=== PATIENT | female | born 1965 | race Hispanic/Latino ===

== ENCOUNTER 2023-10-05 20:23 | Emergency (ER) | payer OTHER ==
[~2023-10-05] VITALS: Ht 152.4 cm; Wt 62.6 kg
[2023-10-05 21:32] LABS: BASOPHILS 0.4 % (0-2); EOSINOPHILS 1.7 % (0-6); HEMATOCRIT 37.3 % (35.0-50.0); HEMOGLOBIN 12.6 g/dL (12.0-18.0); LYMPHOCYTES 12.5 % (24-44); MCH 30.1 (27-36); MCHC 33.6 g/dl (30-36); MCV 89.5 fl (81-99); MONOCYTES 7.8 % (0-12); NEUTROPHILS 77.6 % (39-80); PLATELET COUNT 189 K/uL (140-440); RBC 4.17 M/ul (4.3-5.7); RDW 14.5 (10.5-15.0)
[2023-10-05 21:43] LABS: INR 0.97 (0.80-1.30); PROTIME 12.5 Sec (11.2-14.2)
[2023-10-05 21:51] LABS: ALBUMIN 3.7 g/dL (3.4-5.0); ALKALINE PHOSPHATASE 80 U/L (46-116); ALT (SGPT) 40 U/L (14-59); ANION GAP 15.6 (7-21); AST (SGOT) 19 U/L (15-37); BILIRUBIN, TOTAL 0.3 ng/dL (0.2-1.0); BUN/CREATININE RATIO 15.62 (6.0-28.6); CALCIUM 8.9 mg/dL (8.5-10.1); CARBON DIOXIDE 26 mmol/L (21-32); CHLORIDE 100 mmol/L (98-107); CREATININE, SERUM 0.64 mg/dL (0.55-1.02); GLOMERULAR FILTRATION RATE,EST 104 mL/min (>60); MAGNESIUM 1.9 mg/dL (1.8-2.4); POTASSIUM 3.6 mmol/L (3.5-5.1); PROTEIN, TOTAL 7.8 g/dL (6.4-8.2); UREA NITROGEN 10 mg/dL (7-18)
[2023-10-05 22:05] LABS: INFLUENZA B NAA NEGATIVE (NEGATIVE); RESPIRATORY SYNCYTIAL VIR NAA NEGATIVE (NEGATIVE)
[2023-10-05 22:43] VITALS: BP 125/72
--- OUTSIDE RECORDS SUMMARY | 2023-10-05 22:56 | XMS ---
PreManage Notification: MARCELO AKHTAR [employer] Events No recent Security Events currently on file CRITERIA MET - [facility] - 2 Visits in 30 Days CARE PROVIDERS -, Kamran- Dentist: [facility] PHONE: [phone] [facility]/Center: [facility] ([facility]AC[facility] BY [facility]) PHONE: [phone] Ron has no Care Guidelines for this patient. ELaura VISIT COUNT (12 MO.) [address] TOTAL 3 NOTE: Visits indicate total known visits. ED/UCC VISIT TRACKING (12 MO.) 10/05/2023 20:24 [facility] [place] TYPE: Emergency COMPLAINT: - COLD SYMPTOMS 09/22/2023 08:32 [facility] [place] TYPE: Emergency DIAGNOSES: - Concussion without loss of consciousness, initial encounter - Contusion of lower back and pelvis, initial encounter - Contusion of right hip, initial encounter - Strain of muscle and tendon of unspecified wall of thorax, initial encounter - Strain of muscle, fascia and tendon at neck level, initial encounter - Strain of muscle, fascia and tendon of lower back, initial encounter - Traumatic subarachnoid hemorrhage without loss of consciousness, initial encounter - FALL HIT BACK OF HEAD AND LEFT HIP OJI 09/22/23 02/13/2023 16:34 [facility] [place] TYPE: Emergency DIAGNOSES: - Contusion of left front wall of thorax, initial encounter - PAIN UNDER LEFT BREAST RADIATES TO BACK INPATIENT VISIT TRACKING (12 MO.) No inpatient visits to display in this time frame [id number]
--- NOTE | 2023-10-06 07:47 | EKG ---
[facility] [address] [facility] [place] [address] Signed Poor data quality, interpretation may be adversely affected Normal sinus rhythm Normal ECG No previous ECGs available Confirmed by CHESTER SIU MD ([id number]) on 10/06/2023 7:46:45 AM Electronically Signed By: CHESTER SIU 10/06/23 0747 PATIENT NAME: TON PILLAIMARCELO SUNG Electrocardiogram DATE OF : 69 PHYSICIAN: CHESTER SIU REPORT #: [id number] REPORT IS CONFIDENTIAL AND NOT TO BE RELEASED WITHOUT AUTHORIZATION
== END 2023-10-05 22:40 | disposition home or self-care (01) ==
LOC: ED 20:23
PROVIDERS: Family Medicine
DX: J10.1 Influenza due to other identified influenza virus with other respiratory manifestations (principal); Z20.822 Contact with and (suspected) exposure to COVID-19
CPT/HCPCS: 36415; 71045; 80053; 83735; 84484; 85025; 85610; 87502; 93005; 93010; A9270; J1885; J2405; J7121; U0002